=== PATIENT | male | born 1975 | race Two or more races ===

== ENCOUNTER 2017-11-06 07:01 | Emergency (ER) | payer MEDICAID ==
[~2017-11-06] VITALS: Ht 165.1 cm; Wt 77.1 kg
[2017-11-06 07:15] VITALS: Ht 165.1 cm; Wt 77.1 kg
[2017-11-06 08:16] VITALS: BP 124/78
== END 2017-11-06 08:16 | disposition home or self-care (01) ==
LOC: ED 07:01
DX: S16.1XXA Strain of muscle, fascia and tendon at neck level, initial encounter (principal); S20.219A Contusion of unspecified front wall of thorax, initial encounter; V89.2XXA Person injured in unspecified motor-vehicle accident, traffic, initial encounter; Y93.73 Activity, racquet and hand sports; Y92.488 Other paved roadways as the place of occurrence of the external cause; Y99.8 Other external cause status